=== PATIENT | male | born 2000 | race Caucasian/White ===

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

== ENCOUNTER 2019-07-20 08:54 | Emergency (ER) | payer BC, OTHER ==
[2019-07-20 09:24] VITALS: O2SAT 99
--- NOTE | 2019-07-20 10:05 | RAD ---
EXAM: XR Abdomen, 2 Views CLINICAL HISTORY: right lower lateral chest upper abd pain TECHNIQUE: Frontal view of the abdomen/pelvis with upright view of the abdomen. COMPARISON: 03/10/2016. FINDINGS: Limitations: None. Intraperitoneal space: No free air. Gastrointestinal tract: There is a moderate amount of right colonic stool. No distention. No radiopaque foreign body. Bones/joints: Unremarkable. IMPRESSION: No acute findings in the abdomen or pelvis. Electronically signed by: Ella Jones MD 07/20/2019 10:04 AM [facility]
--- NOTE | 2019-07-20 10:07 | RAD ---
CHEST, TWO VIEW, XR CLINICAL HISTORY: right lower lateral chest upper abd pain 2d COMPARISON: None. TECHNIQUE: Frontal and lateral Chest. FINDINGS: Heart is normal in size. Normal cardiomediastinal contours. Pulmonary vascularity appears normal. Clear lungs and pleural spaces. Unremarkable bones and soft tissues. Bowel gas pattern within the imaged upper abdomen appears normal. IMPRESSION: 1. Negative chest. Electronically signed by: Dara Akers DO 07/20/2019 10:05 AM [facility]
[2019-07-20 10:08] VITALS: BP 132/81
[2019-07-20] MEDS ORDERED: MAGNESIUM HYDROXIDE 30 ML UD PO ONE (10:14)
--- NOTE | 2019-07-20 10:17 | ED.PDOC ---
History of Present Illness - General Chief Complaint: Abdominal Pain Stated Complaint: R sided abd pain Time Seen by Provider: 07/20/19 08:55 Source: patient Exam Limitations: no limitations - History of Present Illness Initial Comments: the patient is a 19-year-old male presenting to emergency room secondary to right lateral abdominal discomfort extending around to the back for the last 2 days. No nausea or vomiting. No loss of appetite. He has had a history of constipation. No fever. Pain is worse with movement. No urinary symptoms. No syncope or near syncope. No history of any gallbladder problems. No gastritis issues. Timing/Duration: other - 2 days Severity: moderate Improving Factors: nothing Worsening Factors: movement Associated Symptoms: denies symptoms Allergies/Adverse Reactions: Allergies NO KNOWN ALLERGY Allergy (Verified 07/20/19 09:13) Home Medications: Ambulatory Orders NK 07/20/19 Review of Systems - Review of Systems Constitutional: States: no symptoms reported EENTM: States: no symptoms reported Respiratory: States: no symptoms reported Cardiology: States: no symptoms reported Gastrointestinal/Abdominal: States: see HPI Genitourinary: States: no symptoms reported Musculoskeletal: States: no symptoms reported Skin: States: no symptoms reported Neurological: States: no symptoms reported Endocrine: States: no symptoms reported All other Systems: No Change from Baseline Past Medical History (General) - Patient Medical History Hx Seizures: No Hx Stroke: No Hx Dementia: No Hx Asthma: No Hx of COPD: No Hx Cardiac Disorders: No Hx Congestive Heart Failure: No Hx Pacemaker: No Hx Hypertension: No Hx Thyroid Disease: No Hx Diabetes: No Hx Gastroesophageal Reflux: No Hx Renal Disease: No Hx Cancer: No Hx of HIV: No Hx Hepatitis C: No Hx MRSA: No Surgical History: no surgical history - Vaccination History Hx Tetanus, Diphtheria Vaccination: Yes Hx Influenza Vaccination: No Hx Pneumococcal Vaccination: No - Social History Hx Tobacco Use: No Hx Alcohol Use: Yes - Occasional Hx Substance Use: No Hx Substance Use Treatment: No Hx Depression: No - Female History Patient is a Female of Child Bearing Age (10 -59 yrs old): No Patient : No Family Medical History - Family History Mother Living Status: Still Living Paternal Grandparents Hx Family Hypertension: Yes Hx Family Stroke: Yes Physical Exam - Physical Exam General Appearance: Alert, Comfortable, No apparent distress Eye Exam: bilateral normal Ears, Nose, Throat: hearing grossly normal, normal ENT inspection Neck: full range of motion, supple Respiratory: lungs clear, normal breath sounds, no respiratory distress, no accessory muscle use Cardiovascular/Chest: normal peripheral pulses, regular rate, rhythm, no edema Peripheral Pulses: radial,right: 2+, radial,left: 2+, dorsalis pedis,right: 2+, dorsalis pedis,left: 2+ Gastrointestinal/Abdominal: non tender - abdominal discomfort is not reproducible with palpation., soft Rectal Exam: deferred Back Exam: no CVA tenderness, no vertebral tenderness Extremity: non-tender, normal inspection, no pedal edema, normal capillary refill 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 Laboratory work and x-ray are reassuring with the exception that there does appear to be moderate constipation to the right part of the large intestine. He is being given a dose of milk of magnesia here. I would recommend a dose of MiraLAX once or twice weekly to prevent recurrence. Laboratory work and vital signs would argue against infection. He needs to be kept well hydrated as the urinalysis is moderately concentrated. he is to return to the emergency room for any significant worsening or significant change of symptoms, otherwise keep follow-up with primary care doctor. yassine carlson [phone] - Results/Orders Results/Orders: two-view chest x-ray two-view abdomen appear essentially benign with the exception of moderate constipation. Laboratory Results - last 24 hr 07/20/19 07/20/19 07/20/19 09:31 09:31 09:31 WBC 6.6 RBC 5.35 Hgb 15.5 Hct 47.2 MCV 88.2 MCH 29.0 MCHC 32.8 L RDW 13.1 Plt Count 165 MPV 9.9 Absolute Neuts (auto) 2.80 Absolute Lymphs (auto) 2.60 Absolute Monos (auto) 0.40 Absolute Eos (auto) 0.70 H Absolute Basos (auto) 0.00 Neutrophils % 43.0 Lymphocytes % 39.0 Monocytes % 6.7 Eosinophils % 10.6 H Basophils % 0.7 Sodium 138 Potassium 4.0 Chloride 104 Carbon Dioxide 27 Anion Gap 11.0 L BUN 9 Creatinine 0.98 BUN/Creatinine Ratio 9.2 L Random Glucose 92 Serum Osmolality 274.0 L Lactic Acid 1.1 Calcium 9.5 Magnesium 1.9 Total Bilirubin 1.8 H AST 19 ALT 13 Alkaline Phosphatase 100 Creatine Kinase 98 CK-MB (CK-2) 1.4 CK-MB (CK-2) % Not Reportable Troponin I < 0.02 Serum Total Protein 7.0 Albumin 4.4 Globulin 2.6 Albumin/Globulin Ratio 1.7 Amylase 45 Lipase 27 Urine Color Urine Appearance Urine pH Ur Specific Gile Urine Protein Urine Glucose (UA) Urine Ketones Urine Blood Urine Nitrite Urine Bilirubin Urine Urobilinogen Ur Leukocyte Esterase Urine RBC Urine WBC Ur Epithelial Cells Urine Bacteria 07/20/19 09:33 WBC RBC Hgb Hct MCV MCH MCHC RDW Plt Count MPV Absolute Neuts (auto) Absolute Lymphs (auto) Absolute Monos (auto) Absolute Eos (auto) Absolute Basos (auto) Neutrophils % Lymphocytes % Monocytes % Eosinophils % Basophils % Sodium Potassium Chloride Carbon Dioxide Anion Gap BUN Creatinine BUN/Creatinine Ratio Random Glucose Serum Osmolality Lactic Acid Calcium Magnesium Total Bilirubin AST ALT Alkaline Phosphatase Creatine Kinase CK-MB (CK-2) CK-MB (CK-2) % Troponin I Serum Total Protein Albumin Globulin Albumin/Globulin Ratio Amylase Lipase Urine Color Yellow Urine Appearance Clear Urine pH 7.0 Ur Specific Gile >= 1.030 Urine Protein Negative Urine Glucose (UA) Negative Urine Ketones Negative Urine Blood Negative Urine Nitrite Negative Urine Bilirubin Small H Urine Urobilinogen 0.2 Ur Leukocyte Esterase Negative Urine RBC 0 Urine WBC 0 Ur Epithelial Cells 0 Urine Bacteria 0 Departure - Departure Clinical Impression: Constipation Qualifiers: Constipation type: unspecified constipation type Qualified Code(s): K59.00 - Constipation, unspecified Disposition: Discharge to Home or Self Care Condition: Fair Departure Forms: ED Discharge - Pt. Copy, Patient Portal Self Enrollment Instructions: Constipation, Adult (DC) Diet: other - high-fiber Activity: increase activity as tolerated Referrals: Holley Patel NP [Primary Care Provider] - 1-2 Weeks Home Medications: Ambulatory Orders NK 07/20/19 Additional Instructions: the patient's 19-year-old male presenting to the emergency room secondary to right sided abdominal pain. Laboratory work and x-ray are reassuring with the exception that there does appear to be moderate constipation to the right part of the large intestine. He is being given a dose of milk of magnesia here. I would recommend a dose of MiraLAX once or twice weekly to prevent recurrence. Laboratory work and vital signs would argue against infection. He needs to be kept well hydrated as the urinalysis is moderately concentrated. he is to return to the emergency room for any significant worsening or significant change of symptoms, otherwise keep follow-up with primary care doctor.
[2019-07-20 10:29] VITALS: TEMP 97
== END 2019-07-20 10:27 | disposition home or self-care (01) ==
LOC: ER 08:54
DX: K59.00 Constipation, unspecified (principal); R10.9 Unspecified abdominal pain